=== PATIENT | female | born 1995 | race African-American/Black ===

== ENCOUNTER 2017-10-25 01:39 | Emergency (ER) | payer SELFPAY ==
[~2017-10-25] VITALS: Ht 154.9 cm; Wt 70.8 kg
[2017-10-25] MEDS ORDERED: Norco 5mg/325mg tab ORAL ONE (02:00)
[2017-10-25] MEDS ORDERED: HYDROCODON-ACE1 EA15 ORAL (03:15)
[2017-10-25] MEDS ORDERED: IBUPROFEN600 MG ORAL (03:15)
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
[2017-10-25 03:20] VITALS: BP 128/76
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
== END 2017-10-25 03:35 | disposition home or self-care (01) ==
LOC: EMR 02:25
DX: S09.90XA Unspecified injury of head, initial encounter (principal); S39.012A Strain of muscle, fascia and tendon of lower back, initial encounter; V43.62XA Car passenger injured in collision with other type car in traffic accident, initial encounter; Y92.410 Unspecified street and highway as the place of occurrence of the external cause
CPT/HCPCS: 72020; 99283